=== PATIENT | female | born 1950 | race Caucasian/White ===

== ENCOUNTER 2017-08-04 14:37 | Outpatient (CLI) | payer MEDICARE, BC | END 2017-08-04 14:40 | LOC: CARD 14:37 | PROVIDERS: ATTEND Family Medicine | DX: R01.1 Cardiac murmur, unspecified (principal) ==

== ENCOUNTER 2018-10-14 14:45 | Outpatient (CLI) | payer MEDICARE, BC ==
[2018-10-14 14:59] LABS: BASOPHILS % 0.5 % (0.0-1.5); NEUTROPHILS # 3.7 # k/uL (1.4-7.7)
[2018-10-14 15:41] LABS: eGFR (Non-African) > 60
== END 2018-10-14 14:47 ==
LOC: LAB 14:45
PROVIDERS: ATTEND Family Medicine
DX: R60.0 Localized edema (principal)
CPT/HCPCS: 36415; 80053; 83880; 85025